=== PATIENT | female | born 1970 | race Caucasian/White ===

== ENCOUNTER 2017-12-09 09:22 | Day surgery (SDC) | payer OTHER ==
[~2017-12-09] VITALS: Ht 175.3 cm; Wt 93.4 kg
[~2017-12-09 09:22] MED LIST: CEPACOL SORE T1 EAC5 MM; PERCOCET 7.5-31 EACH; TYLENOL325 MG PO
[2017-12-09] MEDS ORDERED: LEVOTHYROXINE100 MCG PO (09:42)
--- NOTE | 2017-12-09 11:23 | NUR ---
12/09/17 1123 Apple Azevedo 1118 PATIENT ARRIVES TO PACU SLEEPING, AWAKENS APPROPRIATELY WITH VERBAL STIMULI. RESP EVEN AND UNLABORED, NC AT 3 LITERS. DENIES PAIN AND NAUSEA. 1120 PATIENT ON ROOM AIR. DENIES PAIN/NAUSEA/NEEDS.
--- NOTE | 2017-12-10 13:21 | OR ---
[facility] [address], [place] [address] Signed DATE OF OPERATION: 12/09/2017 SURGEON: Chris Chan MD PREOPERATIVE DIAGNOSES: 1. Persistent epigastric pain, clinical reflux symptoms. 2. Intolerance of PPI medication. POSTOPERATIVE DIAGNOSES: 1. Prepyloric small ulcer of stomach. 2. Normal flap valve, but foci of Olivo's epithelium x2. 3. Chronic duodenitis. PROCEDURE: Esophagogastroduodenoscopy with biopsy. ANESTHESIA: Intravenous sedation, fentanyl 100 mcg, Versed 3.5 mg. INDICATION: This 47-year-old white woman is a patient of Dr. Woods, who has had complaints of epigastric pain, suggestion of gastroesophageal reflux. She has been given Prilosec, which she only tolerated for 2 weeks due to symptoms of constipation and upon withdrawal of the medication diarrhea. She additionally has been empirically treated with H2 blockers, Zantac and if this is of no benefit. Mindful, she has undergone cholecystectomy and considering the possibility of a bile reflux related gastritis or esophagitis. Empiric treatment with Questran was undertaken, which did improve her symptoms somewhat, but not completely. She was admitted at this time to undergo upper endoscopy to better characterize the problem. She may be a candidate for surgical intervention if appropriate. FINDINGS: She had a prepyloric ulcer of the stomach. It was not large or deep, but likely was accounting for at least part of her symptoms. The duodenum had inflammation as well. There was mild antral gastritis. CLOtest was negative. Retroflexed view showed a very good flap valve and certainly no sign of hiatal hernia. In the esophagus, she had two foci that were suggestive of Olivo's epithelium above the GE junction, one of them was biopsied. The esophagus itself looked mildly inflamed otherwise. DESCRIPTION OF PROCEDURE: Electronically Signed By: CHRIS CHAN MD 12/10/17 1321 PATIENT NAME: ANTHONY BENSON OPERATIVE REPORT DATE OF : 66 PHYSICIAN: CHRIS CHAN MD REPORT #: [id number] REPORT IS CONFIDENTIAL AND NOT TO BE RELEASED WITHOUT AUTHORIZATION [facility] [address] [place], [place] [address] Signed The patient was brought to the endoscopy suite and given topical Hurricaine spray hypopharyngeal anesthesia and placed in lateral decubitus position. She was given intravenous sedation to the point of slurred speech and nystagmus with full cardiopulmonary monitoring. A bite block was placed and an Olympus video upper endoscope passed in the hypopharynx. The vocal cords appeared normal as did the soft tissue in the area. The scope was advanced to the esophagus and throughout its length it was normal. In the distal portion, there was mild inflammatory change in two foci of Olivo's esophagus, small islands of such tissue. The scope was then passed to the stomach, which was insufflated, but there was no bile within the stomach. Antral folds and gastric folds appeared normal. The pylorus itself was normal, but in the prepyloric area with an obvious small ulcer. The scope was passed into the duodenum, which showed obvious duodenitis in the bulbar and 2nd portions. Biopsies were obtained. The scope was withdrawn and directed biopsy taken of the ulcer, which was small as well as biopsies of the antrum. Retroflexed view was undertaken showing a very good flap valve far better than I expected. There was mild proximal gastritis. Scope was straightened, withdrawn and biopsies taken of the distal esophagus, particularly at the site of Olivo's epithelium. Further withdrawal of scope showed no other findings. The scope was removed. CONCLUDING DIAGNOSIS: The patient's symptoms may be largely related to prepyloric ulcer and gastritis. 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 CLOtest so far is negative. PLAN: We will recommend Carafate 1 g dissolved in water at least one-half hour before food and see her back in the office in 4-6 weeks, sooner if needed. MD OMERO Barboza/MODL /[id number] Electronically Signed By: CHRIS CHAN MD 12/10/17 1321 PATIENT NAME: ANTHONY BENSON OPERATIVE REPORT DATE OF : 66 PHYSICIAN: CHRIS CHAN MD REPORT #: [id number] REPORT IS CONFIDENTIAL AND NOT TO BE RELEASED WITHOUT AUTHORIZATION [facility] [address] [place] [address] Signed cc: Dae Woods MD Electronically Signed By: CHRIS CHAN MD 12/10/17 1321 PATIENT NAME: ANTHONY BENSON OPERATIVE REPORT DATE OF : 66 PHYSICIAN: CHRIS CHAN MD REPORT #: [id number] REPORT IS CONFIDENTIAL AND NOT TO BE RELEASED WITHOUT AUTHORIZATION
== END 2017-12-09 11:55 | disposition home or self-care (01) ==
LOC: DS 09:22 → OPS 09:22 → DS 11:00 → OPS 11:55
PROVIDERS: Surgery
PROC: 0DB78ZX Excision of Stomach, Pylorus, Via Natural or Artificial Opening Endoscopic, Diagnostic (ICD-10-PCS; 2017-12-09)
PROC: 0DB38ZX Excision of Lower Esophagus, Via Natural or Artificial Opening Endoscopic, Diagnostic (ICD-10-PCS; 2017-12-09)
PROC: 0DB98ZX Excision of Duodenum, Via Natural or Artificial Opening Endoscopic, Diagnostic (ICD-10-PCS; principal; 2017-12-09 11:00)
DX: K29.50 Unspecified chronic gastritis without bleeding (principal); K29.80 Duodenitis without bleeding; K25.9 Gastric ulcer, unspecified as acute or chronic, without hemorrhage or perforation; K26.9 Duodenal ulcer, unspecified as acute or chronic, without hemorrhage or perforation; K20.9 Esophagitis, unspecified; E03.9 Hypothyroidism, unspecified; Z87.891 Personal history of nicotine dependence; Z90.49 Acquired absence of other specified parts of digestive tract
CPT/HCPCS: 99153; G0500; J2250; J3010; J7120